=== PATIENT | female | born 1995 | race Caucasian/White ===

== ENCOUNTER 2017-04-08 00:03 | Emergency (ER) | payer SELFPAY ==
[2017-04-08 00:07] VITALS: BP 129/68; PULSE 81; RESP 18; TEMP 98.4
--- NOTE | 2017-04-08 00:42 | ED ---
General Adult HPI - General Chief complaint: Skin/Abscess/Foreign Body Stated complaint: Bite on arm Time Seen by Provider: 04/08/17 00:36 Source: patient, RN notes reviewed, old records reviewed Mode of arrival: ambulatory Limitations: no limitations - History of Present Illness Initial comments: Which is a 21-year-old female presents with a right forearm erythema and swelling. She reports that she noticed a bug bite three days ago. She had the area form a nice pimple from which she was able to express puss from the area three days ago. At that time afterwards pretties clear fluid until yesterday was hard to produce puss again. Patient reports that she noticed the area of redness started to spread. She took a BenadrylAnd had manuel minimal improvement. Denies any history of Marsa. - Related Data Previous Rx's Medication Instructions Recorded Cephalexin [Keflex] 500 mg PO Q8HR #28 cap 04/08/17 Allergies Allergy/AdvReac Type Severity Reaction Status Date / Time No Known Allergies Allergy Verified 04/08/17 00:07 Review of Systems ROS Statement: Those systems with pertinent positive or pertinent negative responses have been documented in the HPI. ROS Other: All systems not noted in ROS Statement are negative. Past Medical History Past Medical History: No Reported History History of Any Multi-Drug Resistant Organisms: None Reported Past Surgical History: No Surgical Hx Reported Past Psychological History: No Psychological Hx Reported Smoking Status: Never smoker Past Alcohol Use History: None Reported Past Drug Use History: None Reported General Exam - General Exam Comments Initial Comments: Well appearing 21-year-old female. No distress. Limitations: no limitations General appearance: alert, in no apparent distress Head exam: Present: atraumatic, normocephalic, normal inspection Eye exam: Present: normal appearance, PERRL, EOMI. Absent: scleral icterus, conjunctival injection, periorbital swelling ENT exam: Present: normal exam, mucous membranes moist Neck exam: Present: normal inspection. Absent: tenderness, meningismus, lymphadenopathy Respiratory exam: Present: normal lung sounds bilaterally. Absent: respiratory distress, wheezes, rales, rhonchi, stridor Cardiovascular Exam: Present: regular rate, normal rhythm, normal heart sounds. Absent: systolic murmur, diastolic murmur, rubs, gallop, clicks GI/Abdominal exam: Present: soft, normal bowel sounds. Absent: distended, tenderness, guarding, rebound, rigid Extremities exam: Present: normal inspection, full ROM, normal capillary refill , other (4-5 cm area of erythema over right dorsum forearm in [place] with central area where bite started. No puss at this time. ). Absent: tenderness, pedal edema, joint swelling, calf tenderness Back exam: Present: normal inspection Neurological exam: Present: alert, oriented X3, CN II-XII intact Psychiatric exam: Present: normal affect, normal mood Course Vital Signs 04/08/17 00:05 Temperature 98.4 F Pulse Rate 81 Respiratory 18 Rate Blood Pressure 129/68 O2 Sat by Pulse 98 Oximetry Medical Decision Making - Medical Decision Making This is a 21 year old female with erythema from bug bite on right forearm for 3 days. It did produce puss 3 days ago. No puss at this time. Area meausres 5cm. Patient will be started on antibiotics for cellulitis. Discussed continue benadryl and ice. Discussed return parameters. Patient agrees to treatment plan and will comply. Disposition Clinical Impression: Right forearm cellulitis Disposition: HOME SELF-CARE Condition: Good Instructions: Cellulitis (ED), Insect Bite or Sting (ED) Additional Instructions: is continue to dose Benadryl, apply ice over the area. Follow-up with primary care provider. Take antibiotics as prescribed. Return to the emergency department if any alarming signs or symptoms occur. Prescriptions: Cephalexin [Keflex] 500 mg PO Q8HR #28 cap Referrals: None,Stated [Primary Care Provider] - 1-2 days Kae Gee MD [STAFF PHYSICIAN] - 1-2 days Time of Disposition: 00:41
== END 2017-04-08 00:46 | disposition home or self-care (01) ==
LOC: EC 00:03
DX: L03.113 Cellulitis of right upper limb (principal)
CPT/HCPCS: 99282

== ENCOUNTER 2018-04-15 01:38 | Emergency (ER) | payer OTHER ==
[2018-04-15 01:46] VITALS: BP 117/77; PULSE 65; RESP 20; TEMP 98.5
[2018-04-15] MEDS ORDERED: PENICILLIN VK 500MG STARTER 4 TAB BTL PO STA (02:05)
[2018-04-15] MEDS ORDERED: ACET/COD 300 MG/30 MG STARTER PACK 6 TAB BTL PO STA (02:05)
--- NOTE | 2018-04-15 02:07 | ED ---
ENT HPI - General Source: patient Mode of arrival: ambulatory Limitations: no limitations <Siria Valle - Last Filed: 04/15/18 02:10> <Randi Barajas - Last Filed: 04/17/18 09:10> - General Chief complaint: Dental/Oral Stated complaint: dental pain Time Seen by Provider: 04/15/18 01:51 - History of Present Illness Initial comments: 22-year-old female patient presented to the emergency department today for evaluation of left upper dental pain. Patient says she has had pain to the area for quite some time however the last 12 hours the pain has increased significantly. Patient denies any trismus or difficulty swallowing. Denies any fever, chills, nausea, or vomiting with this. Patient states she does have multiple broken teeth and cavities. She denies any facial swelling. Patient denies any recent rash, shortness breath, chest pain, abdominal pain, diarrhea, constipation, back pain, numbness, tingling, dizziness, weakness, hematuria, dysuria, urinary urgency, urinary frequency, headache, visual changes, or any other complaints. (Siria Valle) - Related Data Previous Rx's Medication Instructions Recorded Acetaminophen-Codeine 300-30mg 1 tab PO Q6H PRN #12 tablet 04/15/18 [Tylenol #3] Penicillin V Potassium [Pen Vee K] 500 mg PO Q6H #40 tablet 04/15/18 Allergies Allergy/AdvReac Type Severity Reaction Status Date / Time No Known Allergies Allergy Verified 04/15/18 01:46 Review of Systems ROS Other: All systems not noted in ROS Statement are negative. <iSria Valle - Last Filed: 04/15/18 02:10> ROS Other: All systems not noted in ROS Statement are negative. <Randi Barajas - Last Filed: 04/17/18 09:10> ROS Statement: Those systems with pertinent positive or pertinent negative responses have been documented in the HPI. Past Medical History Past Medical History: No Reported History History of Any Multi-Drug Resistant Organisms: None Reported Past Surgical History: No Surgical Hx Reported Past Psychological History: No Psychological Hx Reported Smoking Status: Current every day smoker Past Alcohol Use History: None Reported Past Drug Use History: None Reported <Siria Valle - Last Filed: 04/15/18 02:10> General Exam Limitations: no limitations General appearance: alert, in no apparent distress, other (Physical well- developed, well-nourished adult female patient in no acute distress. Vital signs upon presentation are temperature 98.5F, pulse 65, respirations 20, blood pressure 117/77, pulse ox 99% on room air.) Eye exam: Present: normal appearance, PERRL, EOMI. Absent: scleral icterus, conjunctival injection, periorbital swelling ENT exam: Present: normal oropharynx, mucous membranes moist, other (Patient has multiple dental caries and fractured teeth. Left upper dentition reveals surrounding gingival hyperplasia and erythema. No evidence of drainable abscess.). Absent: normal exam Respiratory exam: Present: normal lung sounds bilaterally. Absent: respiratory distress, wheezes, rales, rhonchi, stridor Cardiovascular Exam: Present: regular rate, normal rhythm, normal heart sounds. Absent: systolic murmur, diastolic murmur, rubs, gallop, clicks Neurological exam: Present: alert, oriented X3, CN II-XII intact Psychiatric exam: Present: normal affect, normal mood Skin exam: Present: warm, dry, intact, normal color. Absent: rash <Siria Valle - Last Filed: 04/15/18 02:10> Vital Signs 04/15/18 01:41 Temperature 98.5 F Pulse Rate 65 Respiratory 20 Rate Blood Pressure 117/77 O2 Sat by Pulse 99 Oximetry Medical Decision Making <Siria Valle - Last Filed: 04/15/18 02:10> <Randi Barajas - Last Filed: 04/17/18 09:10> - Medical Decision Making 22-year-old female patient presents to the emergency department today for evaluation of left upper dental pain. Physical examination did reveal multiple dental caries and fractured teeth. Left upper dentition reveals surrounding gingival erythema and hyperplasia. No evidence of drainable abscess. We'll start patient on penicillin and given Tylenol 3 for pain. She does have ibuprofen at home. She is instructed to follow-up with dentistry as soon as possible. She does have dental insurance older making calls on Monday. Return parameters were discussed in detail. She verbalizes understanding and agrees with this plan. (Siria Valle) Maddy was available for consultation in the emergency department. The history and physical exam were done by the midlevel provider. I was consulted for this patient's care. I reviewed the case with the midlevel provider and based on their presentation of the patient, I agree with the assessment, medical decision making and plan of care as documented. (Randi Barajas) Disposition Is patient prescribed a controlled substance at d/c from ED?: Yes When asked, does pt state using other controlled substances?: No If prescribed controlled substance>3 days was MAPS reviewed?: Prescribed <3 Days If opioid is for acute pain is fill amount 7 days or less?: Yes If Rx opioid, was Start Talking consent form obtained?: Yes Time of Disposition: 02:07 <Siria Valle - Last Filed: 04/15/18 02:10> <Radni Barajas - Last Filed: 04/17/18 09:10> Clinical Impression: Dental infection Disposition: HOME SELF-CARE Condition: Good Instructions: Dental Caries (ED), Toothache (ED) Additional Instructions: Cool compresses to the outside of the face. Complete antibiotic prescription in full. Follow up with dentistry as soon as possible. Return immediately for any new, worsening, or concerning symptoms. Prescriptions: Acetaminophen-Codeine 300-30mg [Tylenol #3] 1 tab PO Q6H PRN #12 tablet PRN Reason: Pain Penicillin V Potassium [Pen Vee K] 500 mg PO Q6H #40 tablet Referrals: None,Stated [Primary Care Provider] - 1-2 days
== END 2018-04-15 02:41 | disposition home or self-care (01) ==
LOC: EC 01:38
DX: S02.5XXA Fracture of tooth (traumatic), initial encounter for closed fracture (principal); K04.7 Periapical abscess without sinus; K02.9 Dental caries, unspecified; F17.200 Nicotine dependence, unspecified, uncomplicated
CPT/HCPCS: 99282

== ENCOUNTER 2018-06-08 16:39 | Emergency (ER) | payer OTHER ==
[2018-06-08 16:49] VITALS: RESP 18; TEMP 98.1
[2018-06-08] MEDS: SODIUM CHLORIDE 0.9% 1,000 ML IV ONE (17:07)
[2018-06-08 17:24] LABS: Basophils % (A) 0 %; Eosinophils # (A) 0.1 k/uL (0-0.7); Eosinophils % (A) 1 %; HCT 38.2 % (34.0-46.0); HGB 13.9 gm/dL (11.4-16.0); Lymphocytes # (A) 2.3 k/uL (1.0-4.8); Lymphocytes % (A) 30 %; MCH 32.2 pg (25.0-35.0); MCHC 36.3 g/dL (31.0-37.0); MCV 88.7 fL (80.0-100.0); Mean Platelet Volume 6.9; Monocytes # (A) 0.4 k/uL (0-1.0); Monocytes % (A) 5 %; Neutrophils # (A) 4.7 k/uL (1.3-7.7); Neutrophils % (A) 62 %; Platelet Count 265 k/uL (150-450); RDW 12.2 % (11.5-15.5); WBC 7.5 k/uL (3.8-10.6)
[2018-06-08 17:31] LABS: ALT 23 U/L (9-52); AST 16 U/L (14-36); Albumin 4.8 g/dL (3.5-5.0); Alkaline Phosphatase 44 U/L (38-126); Anion Gap 11 mmol/L; Blood Urea Nitrogen 8 mg/dL (7-17); Calcium 9.8 mg/dL (8.4-10.2); Carbon Dioxide 23 mmol/L (22-30); Chloride 105 mmol/L (98-107); Glucose 91 mg/dL (74-99); Potassium 3.8 mmol/L (3.5-5.1); Sodium 139 mmol/L (137-145); Total Bilirubin 0.8 mg/dL (0.2-1.3); Total Protein 7.9 g/dL (6.3-8.2)
--- NOTE | 2018-06-08 17:48 | US ---
EXAMINATION TYPE: Transabdominal DATE OF EXAM: 06/08/2018 5:27 PM COMPARISON: NONE CLINICAL HISTORY: pain. spotting today EXAM PERFORMED: Transabdominal (TA) EXAM MEASUREMENTS: GESTATIONAL AGE / DATING Dates by LMP: (9 weeks/6 days) EDC: 01/05/2019 Dates by Current Scan: (7 weeks/0 days) EDC: 01/25/2019 MATERNAL ANATOMY Uterus: 7.7 x 5.1 x 4.8 cm Right Ovary: 2.9 x 1.8 x 1.6 cm Left Ovary: 3.0 x 2.1 x 1.6 cm Post CDS / Adnexa: no free fluid Presence of free fluid: no Presence of corpus luteal cyst: left ovarian lesion = 1.4 x 1.5 x 1.2 cm Presence of subchorionic bleed: no GESTATION / SURVEY CRL: 1.0 (7 weeks/0 days) MSD: seen, not measured Yolk Sac (normal less than 6mm): 2.4 Heart Rate: 139 bpm Rhythm: Normal IUP: Viable IUP Date of LMP: 03/31/2018, G1 Beta HcG (if available): Not available at this time Single live IUP measuring 7 weeks 0 days IMPRESSION: No complicating process seen. First exam.
--- NOTE | 2018-06-08 17:55 | ED ---
Female Urogenital HPI - General Chief complaint: Vaginal Bleeding Stated complaint: 7 wks /bleeding Time Seen by Provider: 06/08/18 16:52 Source: patient Mode of arrival: ambulatory Limitations: no limitations - History of Present Illness Initial comments: 22-year-old female presents today for chief complaint of vaginal bleeding. Patient states that she had a positive test at home, she states she feels she is 7 weeks . Pt states she has had cramping in the lower abdomen throughout the entire for the past 3-4 weeks and thought this was normal. She denies any significant pain. Patient denies any pain with sex. Patient denies any vaginal discharge, dysuria, urgency or frequency or hematuria, or back pain. Pt denies fever, chills or upper abdominal pain. Upon arrival pt appears well, VS WNL. Remaining ROS (-), patient denies any recent shortness of breath, chest pain, nausea or vomiting, numbness or tingling, constipation or diarrhea, headaches or visual changes, or any other complaints. - Related Data Home Medications Medication Instructions Recorded Confirmed Pee-Ilgd-Gkrff Acid 1 cap PO HS 06/08/18 06/08/18 [-U Capsule (formulary)] Allergies Allergy/AdvReac Type Severity Reaction Status Date / Time No Known Allergies Allergy Verified 06/08/18 17:02 Review of Systems ROS Statement: Those systems with pertinent positive or pertinent negative responses have been documented in the HPI. ROS Other: All systems not noted in ROS Statement are negative. Past Medical History Past Medical History: No Reported History History of Any Multi-Drug Resistant Organisms: None Reported Past Surgical History: No Surgical Hx Reported Past Psychological History: No Psychological Hx Reported Smoking Status: Current every day smoker Past Alcohol Use History: None Reported Past Drug Use History: None Reported General Exam - General Exam Comments Initial Comments: General: The patient is awake and alert, in no distress, and does not appear acutely ill. Eye: Pupils are equal, round and reactive to light, extra-ocular movements are intact. No nystagmus. There is normal conjunctiva bilaterally. No signs of icterus. Ears, nose, mouth and throat: There are moist mucous membranes and no oral lesions. Neck: The neck is supple, there is no tenderness or JVD. Cardiovascular: There is a regular rate and rhythm. No murmur, rub or gallop is appreciated. Respiratory: Lungs are clear to auscultation, respirations are non-labored, breath sounds are equal. No wheezes, stridor, rales, or rhonchi. Gastrointestinal: Soft, non-distended, non-tender abdomen without masses or organomegaly noted. There is no rebound or guarding present. No CVA tenderness. Bowel sounds are unremarkable. Pelvic Exam: There is a closed os. Blood in vault, brown-reddish. Vaginal mucosa pink well rugated. No evidence of laceration. No cervical motion or adnexal tenderness. No external lesion. Musculoskeletal: Normal ROM, no tenderness. Strength 5/5. Sensation intact. Pulses equal bilaterally 2+. Neurological: A&O x 3. CN II-XII intact, There are no obvious motor or sensory deficits. Coordination appears grossly intact. Speech is normal. Skin: Skin is warm and dry and no rashes or lesions are noted. Psychiatric: Cooperative, appropriate mood & affect, normal judgment. Limitations: no limitations Course Vital Signs 06/08/18 06/08/18 16:46 19:15 Temperature 98.1 F Pulse Rate 77 76 Respiratory 18 18 Rate Blood Pressure 114/70 117/54 O2 Sat by Pulse 100 98 Oximetry Medical Decision Making - Medical Decision Making US revealed viable 7 wk IUP, no evidence ectopic. Pelvic revealed closed os, with blood in vault. No pain on exam. No RhoGam indicated. Pt HbG stable. VS WNL. Pt appears well denies pain. HCG within acceptable limits for 7 weeks. At this time do feel this is most likely a threatened , patient is to follow-up with [facility] in the next 1-2 weeks. Return parameters were discussed at length the patient who verbalizes understanding. Patient is agreeable plan discharge. Denies questions at this time. Patient denies concern for STD, urinalysis revealed evidence of blood most likely from the vagina no findings consistent with infectious process. Pt discharged appearing well. Discussed case with attending Dr. Se guido to patient discharge. - Lab Data Result diagrams: 06/08/18 17:00 06/08/18 17:00 Lab Results 06/08/18 06/08/18 06/08/18 Range/Units 17:00 17:00 17:00 WBC 7.5 (3.8-10.6) k/uL RBC 4.30 (3.80-5.40) m/uL Hgb 13.9 (11.4-16.0) gm/dL Hct 38.2 (34.0-46.0) % MCV 88.7 (80.0-100.0) fL MCH 32.2 (25.0-35.0) pg MCHC 36.3 (31.0-37.0) g/dL RDW 12.2 (11.5-15.5) % Plt Count 265 (150-450) k/uL Neutrophils % 62 % Lymphocytes % 30 % Monocytes % 5 % Eosinophils % 1 % Basophils % 0 % Neutrophils # 4.7 (1.3-7.7) k/uL Lymphocytes # 2.3 (1.0-4.8) k/uL Monocytes # 0.4 (0-1.0) k/uL Eosinophils # 0.1 (0-0.7) k/uL Basophils # 0.0 (0-0.2) k/uL Sodium 139 (137-145) mmol/L Potassium 3.8 (3.5-5.1) mmol/L Chloride 105 (98-107) mmol/L Carbon Dioxide 23 (22-30) mmol/L Anion Gap 11 mmol/L BUN 8 (7-17) mg/dL Creatinine 0.65 (0.52-1.04) mg/dL Est GFR (CKD-EPI)AfAm >90 (>60 ml/min/1.73 sqM) Est GFR (CKD-EPI)NonAf >90 (>60 ml/min/1.73 sqM) Glucose 91 (74-99) mg/dL Calcium 9.8 (8.4-10.2) mg/dL Total Bilirubin 0.8 (0.2-1.3) mg/dL AST 16 (14-36) U/L ALT 23 (9-52) U/L Alkaline Phosphatase 44 (38-126) U/L Total Protein 7.9 (6.3-8.2) g/dL Albumin 4.8 (3.5-5.0) g/dL HCG, Quant 55077.8 mIU/mL Urine Color Urine Appearance (Clear) Urine pH (5.0-8.0) Ur Specific [place] (1.001-1.035) Urine Protein (Negative) Urine Glucose (UA) (Negative) Urine Ketones (Negative) Urine Blood (Negative) Urine Nitrite (Negative) Urine Bilirubin (Negative) Urine Urobilinogen (<2.0) mg/dL Ur Leukocyte Esterase (Negative) Urine RBC (0-5) /hpf Urine WBC (0-5) /hpf Ur Squamous Epith Cells (0-4) /hpf Amorphous Sediment (None) /hpf Urine Bacteria (None) /hpf Urine Mucus (None) /hpf Trichomonas Ag (Rapid) (Negative) Blood Type AB Positive Blood Type Recheck [facility] ONLY 06/08/18 06/08/18 Range/Units 17:45 17:45 WBC (3.8-10.6) k/uL RBC (3.80-5.40) m/uL Hgb (11.4-16.0) gm/dL Hct (34.0-46.0) % MCV (80.0-100.0) fL MCH (25.0-35.0) pg MCHC (31.0-37.0) g/dL RDW (11.5-15.5) % Plt Count (150-450) k/uL Neutrophils % % Lymphocytes % % Monocytes % % Eosinophils % % Basophils % % Neutrophils # (1.3-7.7) k/uL Lymphocytes # (1.0-4.8) k/uL Monocytes # (0-1.0) k/uL Eosinophils # (0-0.7) k/uL Basophils # (0-0.2) k/uL Sodium (137-145) mmol/L Potassium (3.5-5.1) mmol/L Chloride (98-107) mmol/L Carbon Dioxide (22-30) mmol/L Anion Gap mmol/L BUN (7-17) mg/dL Creatinine (0.52-1.04) mg/dL Est GFR (CKD-EPI)AfAm (>60 ml/min/1.73 sqM) Est GFR (CKD-EPI)NonAf (>60 ml/min/1.73 sqM) Glucose (74-99) mg/dL Calcium (8.4-10.2) mg/dL Total Bilirubin (0.2-1.3) mg/dL AST (14-36) U/L ALT (9-52) U/L Alkaline Phosphatase (38-126) U/L Total Protein (6.3-8.2) g/dL Albumin (3.5-5.0) g/dL HCG, Quant mIU/mL Urine Color Yellow Urine Appearance Cloudy H (Clear) Urine pH 6.5 (5.0-8.0) Ur Specific [place] 1.007 (1.001-1.035) Urine Protein Trace H (Negative) Urine Glucose (UA) Negative (Negative) Urine Ketones Trace H (Negative) Urine Blood Large H (Negative) Urine Nitrite Negative (Negative) Urine Bilirubin Negative (Negative) Urine Urobilinogen <2.0 (<2.0) mg/dL Ur Leukocyte Esterase Negative (Negative) Urine RBC <1 (0-5) /hpf Urine WBC 5 (0-5) /hpf Ur Squamous Epith Cells 7 H (0-4) /hpf Amorphous Sediment Few H (None) /hpf Urine Bacteria Rare H (None) /hpf Urine Mucus Rare H (None) /hpf Trichomonas Ag (Rapid) Negative (Negative) Blood Type Blood Type Recheck Disposition Clinical Impression: Threatened Disposition: HOME SELF-CARE Condition: Good Instructions (If sedation given, give patient instructions): Threatened Miscarriage (ED) Additional Instructions: Please use medication as discussed. Please follow-up with OBGYN in the next week or two. Please return to emergency room if the symptoms increase or worsen or for any other concerns, including pain or heavy vaginal bleeding, fever. Is patient prescribed a controlled substance at d/c from ED?: No Referrals: None,Stated [Primary Care Provider] - 1-2 days Anita Orozco DO [Doctor of Osteopathic Medicine] - 1-2 days Time of Disposition: 17:56
[2018-06-08 18:11] LABS: HCG,Quantitative Serum 70268.8 mIU/mL
[2018-06-08 18:38] LABS: Amorphous Sediment,Urine Few /hpf; Appearance,Urine Cloudy (Clear); Bacteria,Urine Rare /hpf; Bilirubin,Urine Negative (Negative); Blood,Urine Large (Negative); Color,Urine Yellow; Glucose,Urine (UA) Negative (Negative); Ketones,Urine Trace (Negative); Leukocyte Esterase,Urine Negative (Negative); Mucus,Urine Rare /hpf; Nitrite,Urine Negative (Negative); PH, Urine 6.5 (5.0-8.0); Protein,Urine Trace (Negative); RBC,Urine <1 /hpf (0-5); Specific Gravity,Urine 1.007 (1.001-1.035); Squamous Epithelial Cell,Urine 7 /hpf (0-4); Urobilinogen,Urine <2.0 mg/dL (<2.0); WBC,Urine 5 /hpf (0-5)
[2018-06-08 19:16] VITALS: BP 117/54; PULSE 76
[2018-06-09 15:30] LABS: N. gonorrhoeae,PCR Negative (Neg,Equiv); Neisseria Source Vagina
[2018-06-09 15:32] LABS: C. trachomatis,PCR Negative (Neg,Equiv); Chlamydia trachomatis Source Vagina
== END 2018-06-08 19:15 | disposition home or self-care (01) ==
LOC: EC 16:39
DX: O20.0 Threatened abortion (principal); O99.331 Smoking (tobacco) complicating pregnancy, first trimester; F17.200 Nicotine dependence, unspecified, uncomplicated; Z3A.01 Less than 8 weeks gestation of pregnancy
CPT/HCPCS: 36415; 76801; 80053; 81001; 84702; 85025; 86900; 86901; 87070; 87205; 87491; 87591; 87808; 96360; 99284

== ENCOUNTER 2019-01-17 05:40 | Inpatient (IN) | payer OTHER ==
[2019-01-17] MEDS ORDERED: BUTORPHANOL 1 MG/ML 1 ML VIAL IV PRN (06:07)
[2019-01-17] MEDS ORDERED: CARBOPROST TROMETHAMINE 250 MCG/ML 1 ML AMP IM PRN (06:16)
[2019-01-17] MEDS ORDERED: METHYLERGONOVINE 0.2 MG/ML 1 ML AMP IM PRN (06:16)
[2019-01-17] MEDS ORDERED: OXYTOCIN 10 UNIT/ML 1 ML VIAL IM PRN (06:16)
[2019-01-17] MEDS ORDERED: TERBUTALINE 1 MG/ML VIAL SQ PRN (06:16)
[2019-01-17] MEDS ORDERED: LIDOCAINE 0.5% (PF) 5 MG/ML (50 ML SDV) SQ PRN (06:16)
[2019-01-17] MEDS ORDERED: OXYTOCIN 30 UNITS/500 ML NS 30 UNIT in SALINE 1 500ML.BAG IV SCH (06:30)
[2019-01-17] MEDS: LACTATED RINGERS 1,000 ML IV SCH ×3 (06:46→15:30)
[2019-01-17 06:53] LABS: Basophils % (A) 0 %; Eosinophils # (A) 0.2 k/uL (0-0.7); Eosinophils % (A) 2 %; HGB 12.1 gm/dL (11.4-16.0); Lymphocytes # (A) 1.5 k/uL (1.0-4.8); Lymphocytes % (A) 15 %; MCHC 36.6 g/dL (31.0-37.0); MCV 90.3 fL (80.0-100.0); Mean Platelet Volume 6.4; Monocytes # (A) 0.7 k/uL (0-1.0); Monocytes % (A) 7 %; Neutrophils # (A) 7.1 k/uL (1.3-7.7); Neutrophils % (A) 73 %; Platelet Count 206 k/uL (150-450); RBC 3.65 m/uL (3.80-5.40); RDW 12.9 % (11.5-15.5); WBC 9.7 k/uL (3.8-10.6)
[2019-01-17] MEDS ORDERED: ROPIVACAINE 5MG/ML 20ML VIAL ONE (11:46)
[2019-01-17] MEDS ORDERED: fentaNYL (PF) 50 MCG/ML 5 ML AMP ONE (11:46)
[2019-01-17] MEDS ORDERED: SODIUM CHLORIDE 0.9% 100 ML BAG ONE (11:46)
--- NOTE | 2019-01-17 20:14 | P.HPOB ---
History of Present Illness H&P Date: 01/17/19 Chief Complaint: Spontaneous rupture membranes This is a 23-year-old female 1 para 0 at 38-6/7 weeks with an estimated date of confinement of 01/25/2019, who presented to labor and delivery with complaints of spontaneous rupture membranes with clear fluid noted at ap proximately 5 AM this morning. She was having irregular contractions. course has been essentially uncomplicated. labs: Hepatitis B surface antigen-negative RPR-nonreactive Rubella-immune Blood type-AB+ Antibody screen-negative HIV-nonreactive Hemoglobin-13.4 Random glucose-85 Obstetrical ultrasound-normal anatomy One hour Glucola-88 Group B streptococcus-negative Obstetrical history: . Gynecologic history: No history of sexually transmitted diseases Social history: She is single. She is unemployed. Review of Systems Constitutional: Denies chills, Denies fever Eyes: denies blurred vision, denies pain Ears, nose, mouth and throat: Denies headache, Denies sore throat Cardiovascular: Denies chest pain, Denies shortness of breath Respiratory: Denies cough Gastrointestinal: Reports abdominal pain (Irregular contractions) Genitourinary: Reports pelvic pain, Reports Musculoskeletal: Denies myalgias Past Medical History Past Medical History: No Reported History History of Any Multi-Drug Resistant Organisms: None Reported Past Surgical History: No Surgical Hx Reported Past Anesthesia/Blood Transfusion Reactions: No Reported Reaction Past Psychological History: No Psychological Hx Reported Smoking Status: Never smoker Past Alcohol Use History: None Reported Past Drug Use History: None Reported - Past Family History Father History Unknown: Yes Medications and Allergies Home Medications Medication Instructions Recorded Confirmed Type Xmn-Dyij-Iwzwv Acid 1 cap PO HS 06/08/18 01/17/19 History [-U Capsule (formulary)] Allergies Allergy/AdvReac Type Severity Reaction Status Date / Time No Known Allergies Allergy Verified 01/17/19 05:43 Exam Osteopathic Statement: *. No significant issues noted on an osteopathic s tructural exam other than those noted in the History and Physical/Consult. Vital Signs Temp Pulse Resp BP Pulse Ox 01/17/19 06:15 97.5 F L 74 16 132/78 99 01/17/19 06:07 97.5 F L 74 16 132/78 99 Intake and Output 01/17/19 01/17/19 01/17/19 06:59 14:59 22:59 Other: Weight 92.986 kg HEENT: Within normal limits Heart: Regular rate and rhythm Lungs: Clear to auscultation bilaterally Abdomen: Soft, nontender Pelvic exam: Clear fluid is noted and positive amnisure is noted. Cervix on admission is approximate 2 cm. heart tones: Are category 1 Contractions: Irregular Extremities: Negative Homans Results Result Diagrams: 01/17/19 06:45 Abnormal Lab Results - Last 24 Hours (Table) 01/17/19 Range/Units 06:45 RBC 3.65 L (3.80-5.40) m/uL Hct 33.0 L (34.0-46.0) % Assessment and Plan (1) 38 weeks gestation of Current Visit: Yes Status: Acute Code(s): Z3A.38 - 38 WEEKS GESTATION OF SNOMED Code(s): 35162972 Plan: Admission for spontaneous rupture of membranes. Oxytocin augmentation of labor. Expectant management. Epidural anesthesia if desired.
--- NOTE | 2019-01-17 20:15 | P.PROBDLV ---
Vaginal Delivery Note - . Vaginal Delivery Note: The patient progressed to complete dilation after oxytocin augmentation of labor. She did receive epidural anesthesia. Once reaching complete dilation, she began pushing. Infant's head came to a crown. With one further push, the infant's head delivered across the perineum followed by the anterior shoulder. Nose and mouth were bulb suctioned at the perineum. Nuchal cord times one was reduced around the infant's head. With one further push, the remainder the in katherine easily delivered and was placed on mother's abdomen. Terminal meconium was noted. Nose and mouth were bulb suctioned after delivery. Cord was clamped and cut and infant was taken to warmer for evaluation. A viable male is noted with scores of 9 at 1 minute and 9 at 5 minutes and infant weight was 7 lbs. 5 oz. Placenta delivered shortly thereafter, intact, with a three-vessel cord. Uterus contracted well after oxytocin was given and uterine massage was carried out. Inspection of the perineum revealed a small first- degree perineal laceration. This area was anesthetized with 1% lidocaine and sutured with 3-0 Vicryl suture in a running locked fashion. Estimated blood loss is approximately 200 mL's. Both mother and are in stable condition.
[2019-01-17] MEDS ORDERED: diphenhydrAMINE 25 MG CAP PO PRN (20:50)
[2019-01-17] MEDS ORDERED: WITCH HAZEL 1 EACH MED..PAD TOPICAL PRN (20:50)
[2019-01-17] MEDS ORDERED: BENZOCAINE/MENTHOL SPRAY 1 GM/SPRAY AEROSOL TOPICAL PRN (20:50)
[2019-01-17] MEDS ORDERED: LANOLIN CREAM 5 GM TUBE TOPICAL PRN (20:50)
[2019-01-17] MEDS ORDERED: HYDROCORTISONE 2.5% RECTAL CREAM 30 GM TUBE RECTAL PRN (20:50)
[2019-01-17] MEDS ORDERED: diphenhydrAMINE 50 MG/ML 1 ML VIAL IVP PRN ×2 (20:50)
[2019-01-17] MEDS ORDERED: ACETAMINOPHEN TAB 325 MG TAB PO PRN (20:50)
[2019-01-17] MEDS ORDERED: SIMETHICONE 80 MG CHEWABLE PO PRN (20:50)
[2019-01-17] MEDS ORDERED: ZOLPIDEM 5 MG TAB PO PRN (20:50)
[2019-01-17] MEDS ORDERED: diphenhydrAMINE 50 MG CAP PO PRN (20:50)
[2019-01-17] MEDS: IBUPROFEN 600 MG TAB PO PRN (20:55)
[2019-01-17] MEDS ORDERED: OXYTOCIN 20 UNITS/1000 ML NS 1,000 ML IV SCH (21:00)
[2019-01-18] MEDS: LACTATED RINGERS 1,000 ML IV SCH ×2 (00:06→21:39)
--- NOTE | 2019-01-18 00:36 | P.PN ---
Progress Note - Text Progress Note Date: 01/18/19 I was called at home by nursing staff and they reported that Peyton was attempting to get up to the bathroom and passed out in her bed. Upon examination by nurses, her fundus no longer felt firm and was much higher. She had a steady trickle of blood noted vaginally. I gave orders to drain her bladder and give her Methergine along with uterine massage. When this did not slow her bleeding, they called me back and I came in to evaluate the patient. Upon arrival, I placed a sterile gown and gloves on and examined her. I expressed a large amount of blood clots from the intrauterine cavity by placing my entire gloved hand within the uterus. At the fundus of the uterus there was a ratty area where some adherent blood clots were noted. I did my best to remove as much as I possibly could. I did not see any further placental or membranous tissue. Even after removing these clots, her uterus initially would firm up but then I would notice steady trickle again with uterine massage. When I placed my gloved hand back within the uterus there were still more clots noted. A total of approximately 1000 mL of blood clots had been removed at this time. At this point I decided to proceed with a Bakri balloon. I sterilely inserted the balloon and into the uterine cavity manually and held it in place with my hand within the uterine cavity. I then inflated the balloon with a total of 250 mL of saline. Once the balloon was inflated and confirmed within the intrauterine cavity, the vagina was then packed with iodoform gauze that was moistened with Vaseline. A Reyes bag was attached to the other end of the device. Next a Reyes catheter was inserted in her bladder and inflated. Once I removed all the clots from her uterine cavity, she stated that her cramping got much better and she felt much better overall. With the balloon in place, she still stated that the cramping was much better than prior to removal of the clots. I've ordered a stat CBC and will start her on antibiotics due to the significant uterine manipulation. I've also given her a second bag of oxytocin. Will monitor closely.
[2019-01-18 00:43] LABS: Basophils % (A) 0 %; Eosinophils % (A) 0 %; HCT 25.1 % (34.0-46.0); Lymphocytes # (A) 1.1 k/uL (1.0-4.8); Lymphocytes % (A) 6 %; MCH 32.4 pg (25.0-35.0); MCHC 35.4 g/dL (31.0-37.0); MCV 91.5 fL (80.0-100.0); Mean Platelet Volume 6.7; Monocytes # (A) 0.7 k/uL (0-1.0); Monocytes % (A) 4 %; Neutrophils # (A) 17.2 k/uL (1.3-7.7); Neutrophils % (A) 89 %; Platelet Count 242 k/uL (150-450); RBC 2.74 m/uL (3.80-5.40); RDW 13.1 % (11.5-15.5); WBC 19.2 k/uL (3.8-10.6)
[2019-01-18 00:49] LABS: HGB 8.9 gm/dL (11.4-16.0)
[2019-01-18] MEDS: IBUPROFEN 600 MG TAB PO PRN (05:55)
--- NOTE | 2019-01-18 06:16 | P.PNOBGVD ---
Subjective - Subjective Principal diagnosis: Status post vaginal delivery day #1, hemorrhage Interval history: Patient has done well since placement of the Bakri balloon. She states her cramping has been much less. Bleeding in the tubing has been very minimal since placement of the balloon her fundus has been firm and no vaginal bleeding is noted. This morning the balloon is deflated removing all of the fluid and then the balloon is removed. No active bleeding is noted after removal. Fundus is firm and approximate 2 below the umbilicus Reyes catheter is also deflated and removed. Vaginal gauze packing is also removed and has minimal blood on it but no clots were seen after removal. Patient states her cramping is minimal. No active bleeding is noted at this time. She has not been up or moving yet. Her hemoglobin did drop from approximately 12.1-8.9 at the time of placement of the Bakri balloon. CBC is pending this morning. Patient reports: Reports appetite normal, Reports pain well controlled : doing well Objective - Latest Vital Signs Latest vital signs: Vital Signs Temp Pulse Resp BP Pulse Ox 01/17/19 22:05 99 F 127 H 16 109/58 98 01/17/19 21:35 98 16 124/71 98 01/17/19 21:05 96 16 124/71 01/17/19 20:50 92 16 124/67 01/17/19 20:35 105 H 16 137/69 01/17/19 20:20 86 16 145/64 01/17/19 20:05 99.4 F 87 16 145/83 99 01/17/19 06:15 97.5 F L 74 16 132/78 99 Intake and Output 01/17/19 01/17/19 01/18/19 14:59 22:59 06:59 Intake Total 1000 Output Total 800 2195 Balance -800 -1195 Intake: IV 1000 Lactated Ringers 1,000 ml 1000 @ 125 mls/hr IV .Q8H [facility] Rx#:[id number] Output: Urine 200 Estimated Blood Loss 600 2195 - Exam Extremities: Present: edema (Trace) Abdomen: Present: normal appearance, soft. Absent: distention, tenderness Uterus: Present: normal, firm. Absent: tenderness - Labs Labs: Abnormal Lab Results - Last 24 Hours (Table) 01/17/19 01/18/19 Range/Units 06:45 00:31 WBC 19.2 H (3.8-10.6) k/uL RBC 3.65 L 2.74 L (3.80-5.40) m/uL Hgb 8.9 L D (11.4-16.0) gm/dL Hct 33.0 L 25.1 L (34.0-46.0) % Neutrophils # 17.2 H (1.3-7.7) k/uL Assessment and Plan Assessment: Impression is status post vaginal delivery day #1, hemorrhage controlled with Bakri balloon. (1) 38 weeks gestation of Current Visit: Yes Status: Acute Code(s): Z3A.38 - 38 WEEKS GESTATION OF SNOMED Code(s): 25523985 Plan: We'll continue to monitor patient today since removal of the balloon. Patient is advised that when she goes home she will need to continue her vitamin and Slow Fe. Patient advised to make sure she has nursing assistance before getting out of bed. Patient is aware that if she is symptomatic, she may need a blood transfusion. Dr. Duenas will take over care later today. Patient is also advised that she should follow-up with me in the office in approximately one week for a postoperative check. Will continue IV until this evening.
[2019-01-18 06:58] LABS: Basophils % (A) 0 %; Eosinophils % (A) 0 %; HCT 20.4 % (34.0-46.0); Lymphocytes # (A) 1.7 k/uL (1.0-4.8); Lymphocytes % (A) 10 %; MCH 32.7 pg (25.0-35.0); MCHC 35.3 g/dL (31.0-37.0); MCV 92.5 fL (80.0-100.0); Mean Platelet Volume 6.5; Monocytes # (A) 0.9 k/uL (0-1.0); Monocytes % (A) 6 %; Neutrophils # (A) 13.6 k/uL (1.3-7.7); Neutrophils % (A) 83 %; Platelet Count 224 k/uL (150-450); RBC 2.21 m/uL (3.80-5.40); RDW 13.4 % (11.5-15.5); WBC 16.5 k/uL (3.8-10.6)
[2019-01-18 07:02] LABS: HGB 7.2 gm/dL (11.4-16.0)
[2019-01-18] MEDS: SENNOSIDES-DOCUSATE SODIUM 1 EACH TAB PO SCH ×2 (09:00→20:53)
[2019-01-19 00:19] VITALS: RESP 16
--- NOTE | 2019-01-19 07:37 | P.DS ---
Providers Date of admission: 01/17/19 06:05 Expected date of discharge: 01/19/19 Attending physician: Anita Orozco Primary care physician: Stated None - Discharge Diagnosis(es) (1) Status post normal vaginal delivery Current Visit: Yes Status: Acute (2) Anemia due to acute blood loss Current Visit: Yes Status: Acute Hospital Course: Pt presented in labor. She underwent a normal vaginal delivery. She had a delayed pp hemorrhage that was stopped with placement of Bakri balloon. HEr bl eeding has been slight for the last 24 hours. She is feeling well, denies nausea, vomiting, chest pain, shortness of breath or any calf pain. She will be discharged home day #2 in stable condition to follow-up with Dr. Orozco in 6 weeks. Plan - Discharge Summary New Discharge Prescriptions: No Action Rik-Wafg-Zkums Acid [-U Capsule (formulary)] 1 cap PO HS Discharge Medication List Daf-Bsif-Blkfa Acid [-U Capsule (formulary)] 1 cap PO HS 06/08/18 [History]
[2019-01-19] MEDS: SENNOSIDES-DOCUSATE SODIUM 1 EACH TAB PO SCH (10:27)
[2019-01-19 17:53] VITALS: BP 127/71; PULSE 97; TEMP 97.8
== END 2019-01-19 18:39 | disposition home or self-care (01) | DRG 768 ==
LOC: FBPOP 05:40 → 4FBP 06:05
PROVIDERS: ADMIT Obstetrics & Gynecology; ATTEND Obstetrics & Gynecology
PROC: 10E0XZZ Delivery of Products of Conception, External Approach (ICD-10-PCS; principal; 2019-01-17)
PROC: 0HQ9XZZ Repair Perineum Skin, External Approach (ICD-10-PCS; 2019-01-17)
PROC: 00HU33Z Insertion of Infusion Device into Spinal Canal, Percutaneous Approach (ICD-10-PCS; 2019-01-17)
PROC: 3E0R3BZ Introduction of Anesthetic Agent into Spinal Canal, Percutaneous Approach (ICD-10-PCS; 2019-01-17)
PROC: 0W3R7ZZ Control Bleeding in Genitourinary Tract, Via Natural or Artificial Opening (ICD-10-PCS; 2019-01-18)
DX: O69.81X0 Labor and delivery complicated by cord around neck, without compression, not applicable or unspecified (principal); Z37.0 Single live birth; O72.1 Other immediate postpartum hemorrhage; D62 Acute posthemorrhagic anemia; O77.0 Labor and delivery complicated by meconium in amniotic fluid; O70.0 First degree perineal laceration during delivery; O99.02 Anemia complicating childbirth; Z3A.38 38 weeks gestation of pregnancy
CPT/HCPCS: 59025; 84112; 85025; 86850; 86900; 86901; 99213

== ENCOUNTER 2019-12-05 07:24 | Day surgery (SDC) | payer OTHER ==
[2019-12-02 15:44] VITALS: BMI 27.3
[~2019-12-05 07:24] MED LIST: LACTATED RINGERS 1,000 ML IV SCH
[2019-12-05 08:03] VITALS: TEMP 97.8
[2019-12-05 08:04] LABS: Glucose,Whole Blood 98 mg/dL (75-99)
[2019-12-05] MEDS ORDERED: LIDOCAINE 1% (10MG/ML) FOR IV START INTRADERMA ONE (08:04)
[2019-12-05] MEDS ORDERED: PROPOFOL 10 MG/ML 20 ML VIAL IV ONE (08:21)
--- NOTE | 2019-12-05 08:22 | P.GSHP ---
History of Present Illness H&P Date: 12/05/19 Chief Complaint: Diarrhea This a 21-year-old female with to diarrhea. Patient's today for colonoscopy to evaluate for possible colitis Past Medical History Past Medical History: GERD/Reflux History of Any Multi-Drug Resistant Organisms: None Reported Past Surgical History: No Surgical Hx Reported Past Anesthesia/Blood Transfusion Reactions: No Reported Reaction Past Psychological History: No Psychological Hx Reported Smoking Status: Former smoker, Vaper Past Alcohol Use History: None Reported Additional Past Alcohol Use History / Comment(s): Quit smoking 3 yrs ago, vapes now. Past Drug Use History: Marijuana Additional Drug Use History / Comment(s): Uses Marijuana once daily. Aware no use 24 hrs prior to procedure. - Past Family History Father History Unknown: Yes Medications and Allergies Home Medications Medication Instructions Recorded Confirmed Type Control Pill 1 tab PO DAILY 12/02/19 12/05/19 History Allergies Allergy/AdvReac Type Severity Reaction Status Date / Time No Known Allergies Allergy Verified 12/02/19 15:45 Surgical - Exam Vital Signs Temp Pulse Resp BP Pulse Ox 97.8 F 67 20 137/62 98 12/05/19 07:57 12/05/19 07:57 12/05/19 07:57 12/05/19 07:57 12/05/19 07:57 - General well developed, well nourished, no distress - Eyes PERRL - ENT normal pinna - Neck no masses - Respiratory normal expansion - Cardiovascular Rhythm: regular - Abdomen Abdomen: soft, non tender Assessment and Plan Assessment: History diarrhea. We'll perform colonoscopy.
--- NOTE | 2019-12-05 08:36 | P.OP ---
Date of Procedure: 12/05/19 Preoperative Diagnosis: Diarrhea Postoperative Diagnosis: Normal colonoscopy Random cold biopsy pathology pending Procedure(s) Performed: Colonoscopy Anesthesia: MAC Surgeon: Mukesh Méndez Pathology: other (Randomcolon biopsy) Condition: stable Disposition: PACU Description of Procedure: Patient's placed on the endoscopy table lateral position. She received IV sedation. Digital rectal exam was performed which revealed no abnormalities. Possible colonoscope was then placed patient anus passed rotator entire colon. The ileocecal valve was visualized. Cecum, ascending transverse colon appeared normal. The descending and sigmoid colon and rectum appeared normal. Random biopsies of the right colon left colon and rectum were performed. This performed: Forcep. Scope was withdrawn for patient. There was no evidence of inflammatory changes of the colon.
[2019-12-05 08:53] VITALS: PULSE 61; RESP 16
[2019-12-05 09:19] VITALS: BP 103/62
== END 2019-12-05 09:20 | disposition home or self-care (01) ==
LOC: ORWHC2ENDO 07:24
PROVIDERS: ATTEND Surgery
DX: R19.7 Diarrhea, unspecified (principal); K21.9 Gastro-esophageal reflux disease without esophagitis; Z87.891 Personal history of nicotine dependence; Z79.3 Long term (current) use of hormonal contraceptives
CPT/HCPCS: 81025; 88305; 45380; J2704